=== PATIENT | female | born 1935 | race Caucasian/White ===

== ENCOUNTER 2020-01-13 08:53 | Emergency (ER) | payer OTHER ==
--- NOTE | 2020-01-13 09:14 | PDOC ---
History of Present Illness <Lewis Wesley - Last Filed: 01/13/20 11:10> - History of Present Illness Initial Comments: 85 yo female with PMH of HTN and CAD brought in by EMS 1 hour after a fall. She fell on her left side and presents with pain on her face, left rib, left hip. After falling, she dragged herself to the couch and sustained rug mccauley on both her knees. She was able to stand and ambulate. Her history is poorly communicated but I am unsure what her baseline mentation is. She endorses nausea and shortness of breath. It is unsure whether this was a mechanical fall or syncope and if she lost consciousness. She denies headache, change in vision, dysuria, vomiting. <Ifeoma Hanks - Last Filed: 01/13/20 12:06> - General Chief Complaint: Pain Stated Complaint: FALL Time Seen by Provider: 01/13/20 09:10 Past History <Lewis Wesley - Last Filed: 01/13/20 11:10> - Medical History Anemia: No Asthma: Yes Cancer: No Cardiac Disorders: No CVA: No COPD: No CHF: No Dementia: No Diabetes: No GI Disorders: Yes (DIVERTICULOSIS) Disorders: No HTN: Yes Hypercholesterolemia: No Liver Disease: No Seizures: No Thyroid Disease: No - Surgical History Abdominal Surgery: Yes Appendectomy: No Cardiac Surgery: No (CARDIAC CATH) Cholecystectomy: Yes (ERCP) Lung Surgery: No Neurologic Surgery: No Orthopedic Surgery: No - Psycho-Social/Smoking History Smoking History: Never smoked <Ifeoma Hanks - Last Filed: 01/13/20 12:06> - Medical History Allergies/Adverse Reactions: Allergies Allergy/AdvReac Type Severity Reaction Status Date / Time diphenhydramine citrate Allergy Verified 01/13/20 09:11 [From Advil PM] ibuprofen Allergy Verified 01/13/20 09:11 levofloxacin [From Levaquin] Allergy Verified 01/13/20 09:11 metronidazole Allergy Hives Verified 01/13/20 09:11 naproxen sodium Allergy Verified 01/13/20 09:11 [From Aleve Cold & Sinus] pseudoephedrine HCl Allergy Verified 01/13/20 09:11 [From Aleve Cold & Sinus] AZOMODELO Allergy Uncoded 01/13/20 09:11 Home Medications: Ambulatory Orders Aspirin 81 mg PO DAILY 11/20/11 Metoprolol Succinate [Toprol XL] 25 mg PO DAILY 11/20/11 Valsartan/Hydrochlorothiazide [Diovan Hct 160-12.5 mg Tab] 1 each PO DAILY 11/20/11 Review of Systems - Review of Systems Able to Perform ROS?: Yes Constitutional: No: Chills, Diaphoresis, Fever HEENTM: No: Blurred Vision, Recent change in vision, Double Vision Respiratory: Yes: Shortness of Breath. No: Cough, Orthopnea Cardiac (ROS): No: Chest Pain, Edema, Irregular Heart Rate ABD/GI: Yes: Nausea. No: Constipated, Diarrhea, Vomiting : No: Burning, Dysuria, Pain Musculoskeletal: Yes: Back Pain, Joint Pain, Neck Pain Integumentary: Yes: Bruising (Bruising surrounding eye. ), Erythema. No: Les ions Neurological: No: Headache, Numbness, Paresthesia, Dizziness Psychiatric: No: Anxiety, Depression, Mood Swings Endocrine: No: Excessive Sweating, Intolerance to Cold, Intolerance to Heat <Ifeoma Hanks - Last Filed: 01/13/20 12:06> *Physical Exam - Vital Signs Last Vital Signs Temp Pulse Resp BP Pulse Ox 98.0 F 69 20 191/70 H 98 01/13/20 09:12 01/13/20 09:12 01/13/20 09:12 01/13/20 09:12 01/13/20 09:12 <Lewis Wesley - Last Filed: 01/13/20 11:10> - Physical Exam General Appearance: Yes: Appropriately Dressed, Apparent Distress HEENT: positive: EOMI, Normal Voice Neck: negative: Trachea midline, Rigid Respiratory/Chest: positive: Chest Tender (left ribs), Lungs Clear, Normal Breath Sounds. negative: Respiratory Distress Cardiovascular: positive: Regular Rhythm, Regular Rate, S1, S2 Musculoskeletal: positive: Decreased Range of Motion (tenderness along lateral hip. rug burn rash on knees. ). negative: CVA Tenderness Extremity: positive: Normal Capillary Refill, Tender, Erythema. 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 negative: Fully Oriented (A&Ox2) <Ifeoma Hanks - Last Filed: 01/13/20 12:06> ED Treatment Course - LABORATORY CBC & Chemistry Diagram: 01/13/20 09:40 01/13/20 09:40 - ADDITIONAL ORDERS Additional order review: Laboratory Results 01/13/20 01/13/20 09:40 09:40 PT with INR 10.90 INR 0.92 Sodium 142 Potassium 4.4 Chloride 106 Carbon Dioxide 26 Anion Gap 10 BUN 14.4 Creatinine 0.9 Est GFR (CKD-EPI)AfAm 67.57 Est GFR (CKD-EPI)NonAf 58.30 Random Glucose 116 H Calcium 8.9 Total Bilirubin 0.9 AST 28 ALT 24 Alkaline Phosphatase 99 Creatine Kinase 199 H Creatine Kinase Index 1.1 CK-MB (CK-2) 2.2 Troponin I < 0.02 Total Protein 7.5 Albumin 3.7 01/13/20 09:40 RBC 4.29 MCV 100.2 H MCHC 33.7 RDW 12.9 MPV 7.2 L Neutrophils % 83.4 H Lymphocytes % 8.0 Monocytes % 8.3 Eosinophils % 0.0 Basophils % 0.3 - RADIOLOGY Radiology Studies Ordered: Category Date Time Status ABDOMEN & PELVIS CT WITH CONTR [CT] Stat CT Scan 01/13/20 09:[address] WITH CONTRAST [CT] Stat CT Scan 01/13/20 09:37 Taken KNEE 3 POS-LEFT [RAD] Stat Radiology 01/13/20 09:45 Taken KNEE 3 POS-RIGHT [RAD] Stat Radiology 01/13/20 09:45 Taken - Medications Given in the ED: ED Medications Discontinued Medications Generic Name Dose Route Start Last Admin Trade Name Jony PRN Reason Stop Dose Admin Morphine Sulfate 2 mg 01/13/20 10:28 01/13/20 10:36 Morphine Sulfate IVPUSH 01/13/20 10:29 2 mg ONCE ONE Administration <Lewis Wesley - Last Filed: 01/13/20 11:10> - LABORATORY CBC & Chemistry Diagram: 01/13/20 09:40 01/13/20 09:40 <Ifeoma Hanks - Last Filed: 01/13/20 12:06> Medical Decision Making - Medical Decision Making Ms nava is an 85 yo female with PMH of HTN and CAD brought in by EMS for evaluation after a fall. CT head, face, cervical,chest and abdomen were performed and revealed multiple left sided rib fractures as well as a small left sided pneumothorax and LUQ pneumoperitoneum. Xray to her knees were negative. EKG shows normal sinus rhythm with left axis deviation. CBC, CMP, PT, INR are within normal limits. She was given 2mg of morphine and 2 mg of ancef. She was given a tetanus vaccine. She was given 1L of fluids. She is being directly admitted to the ED at [facility]. I spoke with Dr Mora who accepted the patient for Dr. Guille Abraham (trauma surgery). She was consented for transfer. Her niece Dionne was phoned and alerted with the patient's consent. 01/13/20 12:05 <Ifeoma Hanks - Last Filed: 01/13/20 12:06> Discharge - Discharge Information Problems reviewed: Yes <Lewis Wesley - Last Filed: 01/13/20 11:10> - Discharge Information Problems reviewed: Yes - Admission No <Ifeoma Hanks - Last Filed: 01/13/20 12:06> - Discharge Information Clinical Impression/Diagnosis: Pneumoperitoneum, Pneumothorax, Rib fractures Disposition: TRANSFER ACUTE CARE/OTHER HOSP
[2020-01-13 09:15] VITALS: BMI 16.2
[2020-01-13 09:56] LABS: BASO % 0.3 % (0-2.0); HEMATOCRIT 42.9 % (32.4-45.2); HEMOGLOBIN 14.5 GM/dL (10.7-15.3); MCH 33.7 pg (25.7-33.7); MCHC 33.7 g/dl (32.0-36.0); MEAN CELL VOLUME 100.2 fl (80-96); MEAN PLT VOLUME 7.2 fl (7.5-11.1); MONO % 8.3 % (3.8-10.2); NEUT % 83.4 % (42.8-82.8); PLATELET COUNT 249 K/MM3 (134-434); RBC 4.29 M/mm3 (3.60-5.2); RDW 12.9 % (11.6-15.6); WHITE BLOOD COUNT 6.5 K/mm3 (4.0-10.0)
[2020-01-13 10:05] LABS: INR 0.92 (0.83-1.09); PROTHROMBIN TIME (PATIENT) 10.9 SEC (9.7-13.0)
[2020-01-13] MEDS ORDERED: MORPHINE SULFATE 2 MG/ML VIAL IVPUSH ONE (10:28)
[2020-01-13] MEDS ORDERED: MORPHINE SULFATE 2 MG/ML VIAL ONE (10:29)
[2020-01-13 10:31] LABS: ALBUMIN 3.7 g/dl (3.4-5.0); ALK PHOS 99 U/L (45-117); ANION GAP 10 MMOL/L (8-16); BILIRUBIN,TOTAL 0.9 mg/dL (0.2-1); BLOOD UREA NITROGEN 14.4 mg/dL (7-18); CALCIUM 8.9 mg/dL (8.5-10.1); CHLORIDE 106 mmol/L (98-107); CO2 26 mmol/L (21-32); CREATININE 0.9 mg/dL (0.55-1.3); GLUCOSE,RANDOM 116 mg/dL (74-106); POTASSIUM 4.4 mmol/L (3.5-5.1); SGOT/AST 28 U/L (15-37); SGPT/ALT 24 U/L (13-61); SODIUM 142 mmol/L (136-145); TOT PROT 7.5 g/dl (6.4-8.2)
[2020-01-13] MEDS ORDERED: ceFAZolin 2 GRAM PREMIX BAG IVPB ONE (11:58)
[2020-01-13] MEDS ORDERED: DIPHTH,PERTUSS(ACELL),TET 0.5 ML DISP.SYRIN IM ONE ×2 (11:59→12:02)
[2020-01-13] MEDS ORDERED: SODIUM CHLORIDE 1,000 ML IV SCH (12:00)
[2020-01-13] MEDS ORDERED: CEFAZOLIN 1 GM/D5W 2 GM/100 ML BAG ONE (12:03)
[2020-01-13 12:17] LABS: URINE APPEARANCE CLEAR; URINE BILIRUBIN NEGATIVE (NEGATIVE); URINE COLOR YELLOW; URINE GLUCOSE (UA) NEGATIVE (NEGATIVE); URINE KETONE NEGATIVE (NEGATIVE); URINE LEUK ESTERASE NEGATIVE (NEGATIVE); URINE NITRITE NEGATIVE (NEGATIVE); URINE PROTEIN NEGATIVE (NEGATIVE); URINE UROBILINOGEN 0.2 mg/dL (0.2-1.0)
[2020-01-13 12:21] VITALS: BP 196/101; PULSE 96
[2020-01-13 12:23] VITALS: TEMP 9
--- NOTE | 2020-01-13 12:29 | PDOC ---
Documentation entered by Preston Choudhury SCRIBE, acting as scribe for Trent Mccarthy MD. Trent Mccarthy MD: This documentation has been prepared by the Kei waters Alexis, SCRIBE, under my direction and personally reviewed by me in its entirety. I confirm that the documentation accurately reflects all work, treatment, procedures, and medical decision making performed by me. Attending Attestation - Resident Resident Name: Ifeoma Hanks - ED Attending Attestation I have performed the following: I have examined & evaluated the patient, The case was reviewed & discussed with the resident, I agree w/resident's findings & plan, Exceptions are as noted - HPI HPI: 01/13/20 12:05 The patient is an 85 year old female with a significant past medical history of HTN, CAD, asthma, and diverticulosis who presents to the ED, BIBA, with pain on the left side of her face, ribs, and hip s/p a fall this morning. The patient reports after falling, she dragged herself to the couch, causing rug mccauley on both knees. The cause of the fall is unknown. The patient also reports nausea, shortness of breath Patient denies headache, change in vision, dysuria, vomiting. Surgical Hx: cholecystectomy, abdominal Allergies: diphenhydramine citrate, ibuprofen, levofloxacin [From Levaquin], metronidazole, naproxen sodium, pseudoephedrine, AZOMODELO - Physicial Exam PE: 01/13/20 12:22 See resident exam - Critical Care Time Total Critical Care Time: 30 Critical Care Statement: The care of this patient involved high complexity decision making to prevent further life threatening deterioration of the patient's condition and/or to evaluate & treat vital organ system(s) failure or risk of failure. - Medical Decision Making 01/13/20 12:30 85 F with multiple injuries after fall of unclear etiology. CTs show pneumothorax + pneumoperitoneum Transfer to [facility] for trauma surgery eval initiated Discharge - Discharge Information Problems reviewed: Yes Clinical Impression/Diagnosis: Pneumoperitoneum, Pneumothorax, Rib fractures Disposition: TRANSFER ACUTE CARE/OTHER HOSP - Follow up/Referral - Patient Discharge Instructions - Post Discharge Activity
--- NOTE | 2020-01-14 11:29 | EKG ---
Test Reason : Blood Pressure : / mmHG Vent. Rate : 069 BPM Atrial Rate : 069 BPM P-R Int : 194 ms QRS Dur : 126 ms QT Int : 430 ms P-R-T Axes : 063 -70 094 degrees QTc Int : 460 ms NORMAL SINUS RHYTHM POSSIBLE LEFT ATRIAL ENLARGEMENT LEFT AXIS DEVIATION LEFT BUNDLE BRANCH BLOCK ABNORMAL ECG WHEN COMPARED WITH ECG OF 05-AUG-2006 16:53, LEFT BUNDLE BRANCH BLOCK IS NOW PRESENT CRITERIA FOR ANTERIOR INFARCT ARE NO LONGER PRESENT Confirmed by RAYMOND CARRILLO MD ([id number]) on 01/14/2020 11:28:44 AM Referred By: Confirmed By:RAYMOND CARRILLO MD
== END 2020-01-13 12:25 | disposition short-term general hospital (02) ==
LOC: JER 08:53
PROC: 3E033GC Introduction of Other Therapeutic Substance into Peripheral Vein, Percutaneous Approach (ICD-10-PCS; principal; 2020-01-13)
PROC: 3E0234Z Introduction of Serum, Toxoid and Vaccine into Muscle, Percutaneous Approach (ICD-10-PCS; principal; 2020-01-13)
DX: S27.0XXA Traumatic pneumothorax, initial encounter (principal); S22.42XA Multiple fractures of ribs, left side, initial encounter for closed fracture; K66.8 Other specified disorders of peritoneum; W19.XXXA Unspecified fall, initial encounter
CPT/HCPCS: 36415; 70450-TC; 70486-TC; 71260-TC; 72125-TC; 73562-TC-LT-FY; 73562-TC-RT-FY; 74177-TC; 80053; 81003; 82550; 82553; 84484; 85025; 85610; 86850; 86900; 86901; 87086; 90715; 93005; 93010; 99285-25; Q9967